=== PATIENT | male | born 1955 | race Caucasian/White ===

== ENCOUNTER 2018-11-12 18:16 | Emergency (ER) | payer MEDICAID ==
--- NOTE | 2018-11-12 19:41 | EDPHY ---
H & P Time Seen by Provider: 11/12/18 19:28 HPI/ROS: Chief complaint. Left leg swelling HPI. 62-year-old male presents emergency department with left lower extremity swelling for 6 days. He has redness as well as itching. Denies trauma. No fever. No symptoms above the left knee. No chest pain or shortness of breath. He has had similar symptoms previously. ROS 10 systems were reviewed and negative with the exception of the elements mentioned in the history of present illness Past Medical/Surgical History: Asthma and umbilical hernia repair Social History: Single, nonsmoker, no alcohol Smoking Status: Never smoked Physical Exam: General Appearance: Alert well-developed male mild distress vital signs are stable. Afebrile Eyes: Pupils equal and round no pallor or injection. ENT, Mouth: Mucous membranes are moist. Respiratory: There are no retractions, lungs are clear to auscultation. Cardiovascular: Regular rate and rhythm. Gastrointestinal: Abdomen is soft and nontender, no masses, bowel sounds normal. Neurological: Awake and alert, sensory and motor exams grossly normal. Skin: Erythema to the left lower extremity. Musculoskeletal: Neck is supple nontender. Extremities swelling to the left lower extremity. No symptoms above the knee. Psychiatric: Patient is oriented X 3, there is no agitation. Constitutional: Initial Vital Signs Temperature (C) 36.6 C 11/12/18 18:20 Heart Rate 91 11/12/18 18:20 Respiratory Rate 16 11/12/18 18:20 Blood Pressure 146/89 H 11/12/18 18:20 O2 Sat (%) 96 11/12/18 18:20 O2 Delivery Mode Room Air Allergies/Adverse Reactions: No Known Allergies Allergy (Verified 11/22/16 19:33) Home Medications: Medication Instructions Recorded Advair 03/29/16 Albuterol Hfa Anes Only 11/22/16 Fluticasone Nasal [Flonase Nasal 2 sprays NASAL DAILY #1 mdi 11/22/16 [place] (RX)] Ofloxacin 0.3% [Ocuflox 0.3% (RX)] 2 drops EACHEYE Q1 #1 btl 11/22/16 Cephalexin [Keflex (*)] 500 mg PO TID #21 cap 11/12/18 Medical Decision Making - Diagnostics Imaging Results: Imaging Impressions Extremity Venous Study 11/12/18 19:42 Impression: 1. No deep vein thrombosis in the left lower extremity. 2. Calf cellulitis with a reactive groin node. Results discussed with Dr. Amando Coronel at 8:18 PM Ultrasound left lower extremity negative for DVT. Reviewed by me and discussed with Up and Procedures: IV normal saline. Vancomycin IV ED Course/Re-evaluation: Re-evaluation 8:30 p.m. Patient is stable. Patient and I discussed laboratory evaluation, imaging studies, treatment plan including criteria for return and importance of follow-up and further evaluation. He expresses understanding and agreement Differential Diagnosis: This appears to be leg cellulitis. I also considered DVT. There was no history of trauma - Data Points Laboratory Results: Laboratory Results 11/12/18 20:20 11/12/18 11/12/18 20:20 20:20 WBC 12.74 10^3/uL H 10^3/uL (3.80-9.50) RBC 4.94 10^6/uL 10^6/uL (4.40-6.38) Hgb 15.0 g/dL g/dL (13.7-17.5) Hct 45.5 % % (40.0-51.0) MCV 92.1 fL fL (81.5-99.8) MCH 30.4 pg pg (27.9-34.1) MCHC 33.0 g/dL g/dL (32.4-36.7) RDW 13.2 % % (11.5-15.2) Plt Count 303 10^3/uL 10^3/uL (150-400) MPV 8.9 fL fL (8.7-11.7) Neut % (Auto) Pending Lymph % (Auto) Pending [place] % (Auto) Pending Eos % (Auto) Pending Baso % (Auto) Pending Nucleat RBC Rel Count Pending Absolute Neuts (auto) Pending Absolute Lymphs (auto) Pending Absolute Monos (auto) Pending Absolute Eos (auto) Pending Absolute Basos (auto) Pending Absolute Nucleated RBC Pending Immature Gran % Pending Immature Gran # Pending Platelet Estimate Pending Sodium Pending Potassium Pending Chloride Pending Carbon Dioxide Pending Anion Gap Pending BUN Pending Creatinine Pending Estimated GFR Pending Glucose Pending Calcium Pending Medications Given: Vancomycin/Sodium Chloride (Vancomycin 1 Gm (Premix)) 250 mls @ 250 mls/hr IV EDNOW ONE PRN Reason: Protocol Stop: 11/12/18 20:47 Last Admin: 11/12/18 20:17 Dose: 250 mls Departure - Departure Disposition: Home, Routine, Self-Care Clinical Impression: Cellulitis Qualifiers: Site of cellulitis: extremity Site of cellulitis of extremity: lower extremity Laterality: left Qualified Code(s): L03.116 - Cellulitis of left lower limb Condition: Good Instructions: Cellulitis (ED) Additional Instructions: Keep leg elevated as much as possible. May use aloe or Benadryl cream to help with itching Begin cephalexin tomorrow to continue to treat infection. Return for worsening symptoms. Recheck by Dr. Espinoza or the ED in 1-2 days without fail. Referrals: Marbella Espinoza MD [Primary Care Provider] - 1-2 days without fail Prescriptions: Cephalexin [Keflex (*)] 500 mg PO TID #21 cap
[2018-11-12] MEDS ORDERED: VANCOMYCIN HCL/NORMAL SALINE 250 ML IV ONE (19:48)
[2018-11-12 20:34] LABS: PLATELET COUNT 303 10^3/uL (150-400)
[2018-11-12 21:42] VITALS: BP 150/81
== END 2018-11-12 21:42 | disposition home or self-care (01) ==
DX: L03.116 Cellulitis of left lower limb (principal)
CPT/HCPCS: 96365; J3370

== ENCOUNTER 2018-11-14 21:06 | Inpatient (IN) | payer MEDICAID ==
[2018-11-14 22:35] LABS: PLATELET COUNT 312 10^3/uL (150-400)
[2018-11-14] MEDS ORDERED: ONDANSETRON DISINTEGRATING 4 MG TAB PO PRN (22:52)
[2018-11-14] MEDS ORDERED: ONDANSETRON 4 MG/2 ML VIAL IVP PRN (22:52)
[2018-11-14] MEDS ORDERED: ceFAZolin 2 GM/DEXTROSE 100 ML IV ONE (22:57)
--- NOTE | 2018-11-14 23:34 | EDPHY ---
H & P Stated Complaint: L LEG CELLULITIS GETTING WORSE Time Seen by Provider: 11/14/18 21:33 HPI/ROS: Chief complaint: Worsening left leg infection History of present illness: This is a 63-year-old male who presents to the emergency department for evaluation of a left leg infection. Patient was seen here 2 days ago after he developed erythema, edema, pain in itching to his left lower leg. He had an ultrasound which was negative for DVT. He was diagnosed with cellulitis and started on Keflex. He is taking the antibiotic as prescribed. He states some areas of redness is improved, some as worsen. However he presents tonight because the swelling is extending from below the knee to above the knee. No fevers. No red streaking. No other associated signs or symptoms. Review of systems: A 10 point review of systems was obtained and other than described above was negative - Personal History Current Tetanus Diphtheria and Acellular Pertussis (TDAP): Yes Tetanus Vaccine Date: 2013 - Medical/Surgical History Hx Asthma: Yes Other PMH: Med hx-Asthma, HTN. Surg-Umbilical hernia - Social History Smoking Status: Never smoked - Physical Exam Exam: General Appearance: Alert, nontoxic. Eyes: Pupils equal and round no injection. Respiratory: Chest is non tender, lungs are clear to auscultation. Cardiac: regular rate and rhythm Gastrointestinal: Abdomen is soft and non tender, no masses, bowel sounds normal. Musculoskeletal: Neck is supple and non tender. Extremities have full range of motion and are non tender. Skin: Patient has extensive erythema and edema extending from the left foot up to the level of the distal thigh. There is warmth and tenderness. Constitutional: Initial Vital Signs Heart Rate 87 11/14/18 21:11 Respiratory Rate 16 11/14/18 21:11 Blood Pressure 159/91 H 11/14/18 21:11 O2 Sat (%) 96 11/14/18 21:11 O2 Delivery Mode Room Air Allergies/Adverse Reactions: No Known Allergies Allergy (Verified 11/22/16 19:33) Home Medications: Medication Instructions Recorded Cephalexin [Keflex (*)] 500 mg PO TID #21 cap 11/12/18 Albuterol [Proventil Inhaler HFA 1 - 2 puffs IH Q4H PRN 11/14/18 (*)] Cetirizine [ZyrTEC 10 mg (*)] 5 mg PO DAILY@07 11/14/18 Fluticasone/Salmeter 250/50Mcg 1 puffs IH DAILY 11/14/18 [Advair 250/50 (*)] amLODIPine BESYLATE [Norvasc 2.5 2.5 mg PO DAILY PRN 11/14/18 mg (*)] Medical Decision Making ED Course/Re-evaluation: Patient is discussed with my secondary supervising physician Dr. Amber Krishnamurthy. Patient presents for a worsening left leg infection. He is nontoxic. Vital signs are stable. It does appear he is failing outpatient oral antibiotic therapy. I will therefore admit him for further evaluation and care. I have consulted with Dr. Dustin Vick. He requests blood cultures and patient be started on Ancef. Plan has been discussed with the patient who voiced understanding and agreement with it. Differential Diagnosis: Included but not limited to her simple is cellulitis, lymphangitis, abscess formation, osteomyelitis, doubtful necrotizing fasciitis - Data Points Laboratory Results: Laboratory Results 11/14/18 22:23 11/14/18 22:23 11/14/18 11/14/18 22:23 22:23 WBC 13.67 10^3/uL H 10^3/uL (3.80-9.50) RBC 4.92 10^6/uL 10^6/uL (4.40-6.38) Hgb 14.7 g/dL g/dL (13.7-17.5) Hct 43.6 % % (40.0-51.0) MCV 88.6 fL fL (81.5-99.8) MCH 29.9 pg pg (27.9-34.1) MCHC 33.7 g/dL g/dL (32.4-36.7) RDW 13.4 % % (11.5-15.2) Plt Count 312 10^3/uL 10^3/uL (150-400) MPV 8.7 fL fL (8.7-11.7) Neut % (Auto) Pending Lymph % (Auto) Pending [place] % (Auto) Pending Eos % (Auto) Pending Baso % (Auto) Pending Nucleat RBC Rel Count Pending Absolute Neuts (auto) Pending Absolute Lymphs (auto) Pending Absolute Monos (auto) Pending Absolute Eos (auto) Pending Absolute Basos (auto) Pending Absolute Nucleated RBC Pending Immature Gran % Pending Immature Gran # Pending Platelet Estimate Pending Sodium 134 mEq/L L mEq/L (135-145) Potassium 4.1 mEq/L mEq/L (3.5-5.2) Chloride 106 mEq/L mEq/L (97-110) Carbon Dioxide 22 mEq/l mEq/l (22-31) Anion Gap 6 mEq/L mEq/L (6-14) BUN 21 mg/dL mg/dL (7-23) Creatinine 1.0 mg/dL mg/dL (0.7-1.3) Estimated GFR > 60 Glucose 90 mg/dL mg/dL (70-100) Calcium 8.8 mg/dL mg/dL (8.5-10.4) Departure - Departure Disposition: [facility] In[facility] Acute Clinical Impression: Cellulitis Qualifiers: Site of cellulitis: extremity Site of cellulitis of extremity: lower extremity Laterality: left Qualified Code(s): L03.116 - Cellulitis of left lower limb Condition: Good
--- NOTE | 2018-11-15 00:43 | PDGENHP ---
History and Physical - Chief Complaint Cellulitis - History of Present Illness 63 yo M w/ hx of asthma presents with LLE cellulitis. The patient reports he developed swelling in that leg about 1 week ago. This was followed by intense itching. He scratched his leg pretty vigorously and then developed warmth and redness. He was seen in the ED 2 days ago, diagnosed with cellulitis, and prescribed Keflex. An US ruled out DVT at that time. Today he noted worsening of the swelling and redness so he came back in to the ED. Laboratory work-up demonstrates a mild leukocytosis but he is otherwise not displaying sepsis physiology. He is being admitted for IV antibiotics. Case discussed with ED CARL Manriquez; records reviewed and summarized above. History Information - Allergies/Home Medication List Allergies/Adverse Reactions: No Known Allergies Allergy (Verified 11/22/16 19:33) Home Medications: Albuterol [Proventil Inhaler HFA (*)] 1 - 2 puffs IH Q4H PRN 11/14/18 [Last Taken Unknown] Cetirizine [ZyrTEC 10 mg (*)] 5 mg PO DAILY@07 11/14/18 [Last Taken 11/14/18] Fluticasone/Salmeter 250/50Mcg [Advair 250/50 (*)] 1 puffs IH DAILY 11/14/18 [ Last Taken 11/14/18] amLODIPine BESYLATE [Norvasc 2.5 mg (*)] 2.5 mg PO DAILY PRN 11/14/18 [Last Taken 11/13/18] I have personally reviewed and updated: family history, medical history - Past Medical History asthma, hypertension - Surgical History Reports: hernia repair - Family History Additional family history: Various family members with substance abuse - Social History Smoking Status: Never smoked Review of Systems Review of Systems: ROS: 10pt was reviewed & negative except for what was stated in HPI & below Physical Exam Physical Exam: Temp Pulse Resp BP Pulse Ox 36.7 C 84 18 147/92 H 95 11/15/18 00:05 11/15/18 00:05 11/15/18 00:05 11/15/18 00:05 11/15/18 00:05 Constitutional: no apparent distress, not in pain Eyes: PERRL, EOMI Ears, Nose, Mouth, Throat: moist mucous membranes, no oral mucosal ulcers Cardiovascular: regular rate and rhythym, no murmur, rub, or gallop Respiratory: no respiratory distress, clear to auscultation Gastrointestinal: normoactive bowel sounds, soft, non-tender abdomen Skin: warm, other (Erythema, swelling LLE/ Mild patch of erythema RLE as well) Musculoskeletal: full muscle strength, no muscle tenderness Neurologic: AAOx3, CN II-XII Intact Psychiatric: interacting appropriately, not anxious Lab Data & Imaging Review 11/14/18 22:23 11/14/18 22:23 WBC 13.67 10^3/uL (3.80-9.50) H 11/14/18 22:23 RBC 4.92 10^6/uL (4.40-6.38) 11/14/18 22:23 Hgb 14.7 g/dL (13.7-17.5) 11/14/18 22:23 Hct 43.6 % (40.0-51.0) 11/14/18 22:23 MCV 88.6 fL (81.5-99.8) 11/14/18 22:23 MCH 29.9 pg (27.9-34.1) 11/14/18 22:23 MCHC 33.7 g/dL (32.4-36.7) 11/14/18 22:23 RDW 13.4 % (11.5-15.2) 11/14/18 22:23 Plt Count 312 10^3/uL (150-400) 11/14/18 22:23 MPV 8.7 fL (8.7-11.7) 11/14/18 22:23 Neut % (Auto) Not Reported 11/14/18 22:23 Lymph % (Auto) Not Reported 11/14/18 22:23 [place] % (Auto) Not Reported 11/14/18 22:23 Eos % (Auto) Not Reported 11/14/18 22:23 Baso % (Auto) Not Reported 11/14/18 22:23 Nucleat RBC Rel Count Not Reported 11/14/18 22:23 Absolute Neuts (auto) Not Reported 11/14/18 22:23 Absolute Lymphs (auto) Not Reported 11/14/18 22:23 Absolute Monos (auto) Not Reported 11/14/18 22:23 Absolute Eos (auto) Not Reported 11/14/18 22:23 Absolute Basos (auto) Not Reported 11/14/18 22:23 Absolute Nucleated RBC Not Reported 11/14/18 22:23 Immature Gran % Not Reported 11/14/18 22:23 Seg Neutrophils % 22.0 % 11/14/18 22:23 Band Neutrophils % 2.0 % 11/14/18 22:23 Lymphocytes % 68.0 % 11/14/18 22:23 Monocytes % 3.0 % 11/14/18 22:23 Eosinophils % 5.0 % 11/14/18 22:23 Basophils % 0.0 % 11/14/18 22:23 Metamyelocytes % 0.0 % 11/14/18 22:23 Myelocytes % 0.0 % 11/14/18 22:23 Promyelocytes % 0.0 % 11/14/18 22:23 Blast Cells % 0.0 % 11/14/18 22:23 Immature Gran # Not Reported 11/14/18 22:23 Absolute Seg Neuts 3.01 10^3/uL (1.70-6.50) 11/14/18 22:23 Absolute Band Neuts 0.27 10^3/uL (0.00-0.70) 11/14/18 22:23 Absolute Lymphocytes 9.30 10^3/uL (1.00-3.00) H 11/14/18 22:23 Absolute Monocytes 0.41 10^3/uL (0.30-0.80) 11/14/18 22:23 Absolute Eosinophils 0.68 10^3/uL (0.03-0.40) H 11/14/18 22:23 Absolute Basophils 0.00 10^3/uL (0.02-0.10) L 11/14/18 22:23 Absolute Metamyelocyte 0.00 10^3/mL (0.00-0.00) 11/14/18 22:23 Absolute Myelocytes 0.00 10^3/mL (0.00-0.00) 11/14/18 22:23 Absolute Promyelocytes 0.00 10^3/uL (0.00-0.00) 11/14/18 22:23 Absolute Plasma Cells 0.00 10^3/uL (0.00-0.00) 11/14/18 22:23 RBC/WBC/PLT Morphology NORMAL (NORMAL) 11/14/18 22:23 Atypical Lymphocytes 3+ H 11/14/18 22:23 Absolute Blast Cells 0.00 10^3/uL (0.00-0.00) 11/14/18 22:23 Plasma Cells % 0.0 % 11/14/18 22:23 Platelet Estimate ADEQUATE (ADEQ) 11/14/18 22:23 Sodium 134 mEq/L (135-145) L 11/14/18 22:23 Potassium 4.1 mEq/L (3.5-5.2) 11/14/18 22:23 Chloride 106 mEq/L (97-110) 11/14/18 22:23 Carbon Dioxide 22 mEq/l (22-31) 11/14/18 22:23 Anion Gap 6 mEq/L (6-14) 11/14/18 22:23 BUN 21 mg/dL (7-23) 11/14/18 22:23 Creatinine 1.0 mg/dL (0.7-1.3) 11/14/18 22:23 Estimated GFR > 60 11/14/18 22:23 Glucose 90 mg/dL (70-100) 11/14/18 22:23 Calcium 8.8 mg/dL (8.5-10.4) 11/14/18 22:23 Assessment & Plan Assessment: 63 yo M w/ asthma and HTN presents with LLE cellulitis. Plan: 1. LLE cellulitis - With mild leukocytosis but no evidence of sepsis physiology at this time. His symptoms progressed despite outpatient Keflex therapy. I suspect he may have initially had an allergic reaction leading to pruritus and excoriations, which was the eventual entry point of infection. - Cefazolin 2g IV q8h - Blood cultures ordered 2. Asthma - No evidence of acute exacerbation. - Continue home medications 3. HTN - Continue home medications Diet - Regular Code - Full Ppx - LMWH Dispo - Admit under observation status
[2018-11-15] MEDS ORDERED: ALBUTEROL 60 PUFFS/8 GM MDI IH PRN (00:48)
[2018-11-15 04:37] LABS: PLATELET COUNT 302 10^3/uL (150-400)
[2018-11-15] MEDS: CETIRIZINE 10 MG TAB PO SCH (07:30)
[2018-11-15] MEDS: ceFAZolin 2 GM/DEXTROSE 100 ML IV SCH ×3 (08:44→23:45)
[2018-11-15] MEDS: ENOXAPARIN 40 MG/0.4 ML SYR SC SCH (08:46)
[2018-11-15] MEDS: FLUTICASONE/SALMETER 250/50MCG DISKUS IH SCH (08:54)
--- NOTE | 2018-11-15 13:45 | HOSPPROG ---
Hospitalist Progress Note Assessment/Plan: 63 yo M w/ asthma and HTN presents with LLE cellulitis. Plan: 1. LLE cellulitis - With mild leukocytosis but no evidence of sepsis physiology on admission. His symptoms progressed despite outpatient Keflex therapy. I suspect he may have initially had an allergic reaction leading to pruritus and excoriations, which was the eventual entry point of infection. - Cefazolin 2g IV q8h - Blood cultures ordered - Will repeat LLE U/S to ensure no DVT 2. Asthma - No evidence of acute exacerbation. - Continue home medications 3. HTN - Continue home medications Diet - Regular Code - Full Ppx - LMWH Dispo - Pending clinical course, improvement in appearance of LLE cellulitis Subjective: Patient reports improvement in ROM of LLE due to improved swelling Objective: Vital Signs Temp Pulse Resp BP Pulse Ox 36.6 C 101 H 16 152/85 H 92 11/15/18 08:14 11/15/18 08:14 11/15/18 08:14 11/15/18 08:14 11/15/18 08:14 Laboratory Results 11/15/18 03:30 11/15/18 03:30 11/14/18 11/15/18 11/16/18 05:59 05:59 05:59 Intake Total 100 Balance 100 - Physical Exam Constitutional: no apparent distress Eyes: PERRL Ears, Nose, Mouth, Throat: moist mucous membranes Cardiovascular: regular rate and rhythym Respiratory: no respiratory distress Gastrointestinal: soft, non-tender abdomen Skin: warm, no fluctuance, erythema, rash Neurologic: AAOx3 Psychiatric: interacting appropriately ICD10 Worksheet Patient Problems: Problems Problem Status Onset Cellulitis Acute
--- NOTE | 2018-11-15 14:37 | ASMTCMCOM ---
CM Note CM Note Notes: 11/15/2018 Case Mangaement Note Discussed pt during rounds this morning. Pt admitted for cellulitis. There are no therapy evals ordered at this time. Met w/pt to discuss discharge needs. [place] by a friend. Pt unsure of address. Pt is currently unemployed. Pt is not in touch with family at this time. Pt shared that ex girlfriend Noemi Salazar [phone] would be emergency contact if pt unable to speak for himself. [facility]. PCP is Dr. Marbella Espinoza Case Management d/c poc: Independent with follow up as directed. Case Management available if needs change. Date Signed: 11/15/2018 02:37 PM Electronically Signed By:Pauly Hussein RN
[2018-11-15] MEDS: ACETAMINOPHEN 325 MG TAB PO PRN ×2 (14:38→18:30)
--- NOTE | 2018-11-15 16:31 | PDMN ---
Medical Necessity Medical necessity: [facility] M70 Cellulitis, A-2 days: 63 yo w/ LLE cellulitis worsening despite OP tx w/ Keflex. IV antibx started, BC pending. Requiring additional MN for ongoing IV antibx, lab monitoring as pt still w/ leukocytosis , and repeat U/S. Change to IP status 11/15/18@1335 per MD order.
[2018-11-16 04:59] LABS: PLATELET COUNT 299 10^3/uL (150-400)
[2018-11-16] MEDS: ENOXAPARIN 40 MG/0.4 ML SYR SC SCH (08:21)
[2018-11-16] MEDS: ceFAZolin 2 GM/DEXTROSE 100 ML IV SCH ×2 (08:21→15:41)
[2018-11-16] MEDS: CETIRIZINE 10 MG TAB PO SCH (08:21)
[2018-11-16] MEDS: FLUTICASONE/SALMETER 250/50MCG DISKUS IH SCH (09:18)
--- NOTE | 2018-11-16 11:55 | HOSPPROG ---
Hospitalist Progress Note Assessment/Plan: 63 yo M w/ asthma and HTN presents with LLE cellulitis. Plan: 1. LLE cellulitis - With mild leukocytosis but no evidence of sepsis physiology on admission. His symptoms progressed despite outpatient Keflex therapy. I suspect he may have initially had an allergic reaction leading to pruritus and excoriations, which was the eventual entry point of infection. - Cefazolin 2g IV q8h - Repeat LLE U/S done on 11/15 which was negative for DVT - Will consult ID this afternoon for further evaluation and treatment 2. Asthma - No evidence of acute exacerbation. - Continue home medications 3. HTN - Continue home medications Diet - Regular Code - Full Ppx - LMWH Dispo - Pending clinical course, improvement in appearance of LLE cellulitis Subjective: Patient reports continuing improvement in swelling in LLE Objective: Vital Signs Temp Pulse Resp BP Pulse Ox 36.9 C 94 16 154/80 H 93 11/16/18 08:00 11/16/18 08:00 11/16/18 08:00 11/16/18 08:21 11/16/18 08:00 Laboratory Results 11/16/18 03:40 11/15/18 11/16/18 11/17/18 05:59 05:59 05:59 Intake Total 1000 Balance 1000 - Physical Exam Constitutional: no apparent distress Eyes: PERRL Ears, Nose, Mouth, Throat: moist mucous membranes Cardiovascular: regular rate and rhythym, edema Respiratory: no respiratory distress Gastrointestinal: normoactive bowel sounds Skin: warm, erythema Musculoskeletal: full muscle strength Neurologic: AAOx3 Psychiatric: interacting appropriately ICD10 Worksheet Patient Problems: Problems Problem Status Onset Cellulitis Acute
--- NOTE | 2018-11-16 16:09 | GCON ---
[f rep st] CONSULTATION INFECTIOUS DISEASE CONSULTATION DATE OF CONSULTATION: 11/16/2018 REQUESTING PHYSICIAN: Naga Alonzo DO REASON FOR CONSULT: To assist in management of this 63-year-old male with left lower extremity cellulitis. There is a concern that it is not resolving. HISTORY OF PRESENT ILLNESS: Mr. Irizarry is a very pleasant 63-year-old male whose previous medical history is notable for the followin. Asthma, well controlled with ProAir that he uses p.r.n. 2. Hypertension. MEDICAL PROVIDER: Dr. Marbella Espinoza in [facility]. Regarding his present issues, the patient tells me that approximately 2 weeks ago he developed extreme pruritis in his left lower extremity by the foot and ankle area. He states there were no overlying skin changes. He states that he scratched it intensely (he admits to heavily scratching the area). He states that he put a topical antibiotic on the area, and the pruritus improved. Shortly thereafter, he states that he noticed some leg swelling and overlying erythema that was pinkish in color. Because of that, he went to his primary care doctor on November 12, who immediately referred him to the emergency department. In the emergency department, an ultrasound was negative for DVT. Patient states he was given a dose of IV antibiotics, which was a gram of vancomycin, and discharged with a prescription for Keflex for 7 days. He was afebrile at the time. After he went home, he told me that his leg definitely looked better with decreased swelling and erythema. He took 5 doses of Keflex and went back to his primary care doctor, as was outlined by Dr. Coronel in the emergency room. Unfortunately, because of the recurrence of erythema and swelling, she referred him right back to our emergency room on the , and the patient was readmitted. He was started empirically on cefazolin given no risk factors for MRSA. Patient has had approximately 5 doses of cefazolin, and because of slow resolution, I am now asked to assist in his management. On speaking with the patient today, he tells me his leg is starting to feel much better. He believes that the erythema is less beet red and he is starting to notice the decreased swelling. He has not been keeping his leg elevated. The patient states that he has been unemployed for the past 2 years and recently had to sell his home in [place] to make ends meet. He has been living at a friend's house, on the couch. He denies any insect bites, but does state that he has been using different soaps that he is normally not used to. He denies any history of an allergic propensity to soaps, or dermatitis or other allergic propensities. REVIEW OF SYSTEMS: Notable for some swelling in the leg, but otherwise he has felt prior to this all happening he was completely well. The patient tells me, "I've never spent a day in the hospital in my life." Otherwise 10 systems were reviewed and all were negative. PREVIOUS MEDICAL HISTORY: As outlined above. MEDICATIONS: Presently include: Cefazolin 2 g IV q.8 hours. He has received 5 doses of Zyrtec 5 mg daily, Lovenox, Zofran and Advair. ALLERGIES: No known drug allergies. SOCIAL HISTORY: The patient is living at a friend's house presently in [facility], but previously lived in [place]. No recent travel within or outside the [place]. No water exposure other than his shower. No insect bites that he is aware of or other unusual exposures. HIV negative in 2000. He states he is heterosexual and his last sexual activity was in June with a friend. He denies any illicit drug use, tobacco or alcohol. He does not have any pets. 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 FAMILY HISTORY: Noncontributory. PHYSICAL EXAMINATION: VITAL SIGNS: T current 36.9, T-max 37.1, heart rate 94, blood pressure 154/80. 94% on room air. GENERAL: Well-nourished, well- developed, middle-aged man, lying in bed, nontoxic, no apparent distress. HEENT : Atraumatic, normocephalic. Pupils equal, round, reactive to light. Extraocular movements are intact. No conjunctival injection. Negative petechiae. Mucous membranes moist. No oral lesions noted. Dentition in very poor repair with multiple fractured and carious teeth. No evidence of apical or periapical abscess or active odontogenic infection. No overlying sinus process tenderness. No cervical or supraclavicular lymphadenopathy. No inguinal adenopathy. CARDIOVASCULAR: S1, S2. No rubs, gallops, or murmurs. LUNGS: Clear to auscultation bilaterally. No rales, rhonchi, or wheeze. ABDOMEN: Soft, no organomegaly or tenderness to palpation. EXTREMITIES: The right lower extremity is not swollen, but is notable for some onychomycosis. He does have a subungual hematoma on the 3rd toe. He has a fairly large erythematous patch on the inner aspect of his right lower extremity that is blanching, and he says coincides with the cellulitis on his left lower extremity. His left lower extremity is edematous compared to the right and is with beet red erythema on his lower extremity extending into the foot dorsum and slightly past the knee. It is circumferential, it is blanching. There are some excoriations on his pretibial area with yellowish crust that is dried. No vesicles or bullae. Sensation is intact throughout with no hypesthesia. No evidence of onychomycosis. No tenderness out of proportion to exam findings. No squeeze tenderness of the gastrocnemius muscle. NEUROLOGIC: He is alert and oriented x3. LABORATORY DATA: No microbiologic data. A white blood cell count 11.3, slightly down from 13.6 on admission. Hematocrit 42, platelet count of 299, 35 % neutrophils, 51% lymphocytes. Mild absolute eosinophilia previously noted of 570. Radiographic data as per the HPI. IMPRESSION: 63-year-old male with left lower extremity cellulitis, as well as a small cellulitic patch on the right. Exam findings are not concerning for a necrotizing fasciitis or myositis. Suspect streptococcal or staphylococcal etiology. The patient does not have risk factors for methicillin-resistant Staphylococcus aureus, and feels that his lower extremity is less erythematous and edematous today. Notably, he has not been keeping his leg elevated. Plan: 1. Given that he has only had a day and a half of cefazolin, would continue this antibiotic as is with concomitant leg elevation. He does feel that he is improving, albeit slowly. 2. Check HIV antibody test for completeness. 3. The patient has a mild absolute eosinophilia, which we will repeat tomorrow. This was not noted previously in laboratories from November 12. 4. The patient is concerned that he has a job interview on Saturday afternoon. He will call his potential employer tomorrow and try and postpone that. He understands that he will be in the hospital at least another couple of days. Thank you very much for consulting Infectious Disease. We will continue to follow this patient with you. /[id number]/MODL MTDD
[2018-11-16] MEDS: hydrOXYzine HCL 25 MG TAB PO PRN (22:54)
[2018-11-17] MEDS: ceFAZolin 2 GM/DEXTROSE 100 ML IV SCH ×4 (00:11→23:49)
[2018-11-17 04:23] LABS: PLATELET COUNT 315 10^3/uL (150-400)
[2018-11-17 06:53] LABS: HIV TYPE 1 AND 2 NEGATIVE (NEGATIVE)
[2018-11-17] MEDS: CETIRIZINE 10 MG TAB PO SCH (07:10)
[2018-11-17] MEDS: ENOXAPARIN 40 MG/0.4 ML SYR SC SCH (08:45)
[2018-11-17] MEDS: FLUTICASONE/SALMETER 250/50MCG DISKUS IH SCH (09:21)
--- NOTE | 2018-11-17 12:04 | HOSPPROG ---
Hospitalist Progress Note Assessment/Plan: 63 yo M w/ asthma and HTN presents with LLE cellulitis. Plan: 1. LLE cellulitis - With leukocytosis but no evidence of sepsis physiology on admission. His symptoms progressed despite outpatient Keflex therapy. I suspect he may have initially had an allergic reaction leading to pruritus and excoriations, which was the eventual entry point of infection. - Cefazolin 2g IV q8h, Day 3 - Repeat LLE U/S done on 11/15 which was negative for DVT - Consulted ID on 11/16 who recommended continuing Ancef 2. Asthma - No evidence of acute exacerbation. - Continue home medications 3. HTN - Continue home medications Diet - Regular Code - Full Ppx - LMWH Dispo - Pending clinical course, patient has interview tomorrow afternoon, d/c tomorrow on PO abx per ID Subjective: Patient reports improved swelling and mobility of LLE Objective: Vital Signs Temp Pulse Resp BP Pulse Ox 37.1 C 80 18 144/85 H 91 L 11/17/18 08:00 11/17/18 08:00 11/17/18 08:00 11/17/18 08:56 11/17/18 08:00 Laboratory Results 11/17/18 03:40 11/17/18 03:40 11/16/18 11/17/18 11/18/18 05:59 05:59 05:59 Intake Total 1000 390 Balance 1000 390 - Physical Exam Constitutional: no apparent distress Eyes: PERRL Ears, Nose, Mouth, Throat: moist mucous membranes Cardiovascular: regular rate and rhythym Respiratory: no respiratory distress Gastrointestinal: soft, non-tender abdomen Skin: warm, erythema, rash Musculoskeletal: full muscle strength Neurologic: AAOx3 Psychiatric: interacting appropriately ICD10 Worksheet Patient Problems: Problems Problem Status Onset Cellulitis Acute
--- NOTE | 2018-11-17 12:49 | PCMIDPN ---
Assessment/Plan: Assessment: 63-year-old man with the 1st episode of lower extremity cellulitis with extensive disease suggestive of streptococcal cellulitis with toxin production causing an extensive immunologic reaction and erysipelas. He notes no clear break in the skin the precipitated this infection. With his clinical improvement and no limitations oral medication use change to oral therapy tomorrow prior to discharge with ID follow-up prior to finishing antibiotics. 1. Extensive left lower extremity cellulitis; erysipelas 2. Right lower extremity cellulitis, small patch 3. Lymphocytosis 4. Eosinophilia resolved 5. History of asthma with no systemic steroids Plan: 1. Continue cefazolin 2 g q.8 while inpatient 2. Can discharge tomorrow on amoxicillin 500 mg p.o. 3 times daily; stop date 3. Discussed in detail potential side effects of antibiotics including antibiotic associated diarrhea, rash, C diff colitis 4. Follow up with ID provider being arranged Mychal De La Cruz MD Infectious Diseases 11/17/18 12:51 Subjective: No fever or chills. Denies diarrhea, nausea, new rash. Appetite normal. Ambulating without difficulty. No new concerns today. Objective: Vital Signs Temp Pulse Resp BP Pulse Ox 37.1 C 80 18 144/85 H 91 L 11/17/18 08:00 11/17/18 08:00 11/17/18 08:00 11/17/18 08:56 11/17/18 08:00 Laboratory Results 11/17/18 03:40 11/17/18 03:40 11/16/18 11/17/18 11/18/18 05:59 05:59 05:59 Intake Total 1000 390 Balance 1000 390 Medications Generic Name Dose Route Start Last Admin Trade Name Freq PRN Reason Stop Dose Admin Cefazolin Sodium/Dextrose 100 mls @ 200 mls/hr 11/15/18 08:00 11/17/18 08:45 Ancef IV 12/15/18 07:59 100 mls Q8H SABINO Protocol Discontinued Medications Generic Name Dose Route Start Last Admin Trade Name Freq PRN Reason Stop Dose Admin Cefazolin Sodium/Dextrose 100 mls @ 200 mls/hr 11/14/18 22:57 11/15/18 00:05 Ancef IV 11/14/18 23:26 100 mls EDNOW ONE Protocol Laboratory Tests 02/05/2511/15/18 11/15/18 22:23 03:30 03:30 WBC Hgb Plt Count Absolute Seg Neuts 4.09 Absolute Lymphocytes 6.13 H Absolute Eosinophils 0.68 H 0.57 H Creatinine 1.0 AST ALT HIV 1&2 Antibody 11/16/18 11/16/18 11/17/18 03:40 03:40 03:40 WBC 11.35 H 11.32 H Hgb 14.1 14.5 Plt Count 299 315 Absolute Seg Neuts 4.64 Absolute Lymphocytes 5.55 H Absolute Eosinophils 0.23 Creatinine AST ALT HIV 1&2 Antibody NEGATIVE 11/17/18 03:40 WBC Hgb Plt Count Absolute Seg Neuts Absolute Lymphocytes Absolute Eosinophils Creatinine 1.1 AST 34 ALT 54 HIV 1&2 Antibody - Physical Exam General Appearance: alert, no apparent distress, non-toxic EENT: No scleral icterus Neck: full range of motion, supple Extremities: other (Left lower extremity with dense erythema extending proximally from the dorsum of the foot near circumferentially to just distal to the knee, receding from the drawn line on his leg from yesterday; right lower extremity with approximately 3 cm diameter patch of erythema at; no areas of fluctuance or induration throughout any of the erythematous areas of his lower extremities; no cracking of the feet including no cracking between the toes) Neuro/Psych: alert, normal mood/affect, oriented x 3, No confused - Time Spent With Patient Time Spent with Patient: greater than 25 minutes Time Spent with Patient: Greater than 25 minutes spent on this patients care, greater than 50% of time spent counseling, educating, and coordinating care regarding the above mentioned plan. ICD10 Worksheet Patient Problems: Problems Problem Status Onset Cellulitis Acute
[2018-11-17] MEDS: hydrOXYzine HCL 25 MG TAB PO PRN (22:10)
[2018-11-18 05:19] LABS: PLATELET COUNT 286 10^3/uL (150-400)
[2018-11-18] MEDS: FLUTICASONE/SALMETER 250/50MCG DISKUS IH SCH (08:35)
--- NOTE | 2018-11-18 08:42 | PDDCSUM ---
Discharge Summary Discharge Summary: Date of Admission: 11/15/2018 Date of Discharge: 11/18/2018 Studies: 1. Lower extremity doppler ultrasound Consultants: infectious disease Discharge Diagnoses: Brief Hospital Course: Medications: Please refer to EMR for complete list. Prescription was sent for amoxicillin 500mg TID #20 to his pharmacy. Follow Up Plan: 1. To be seen in infectious disease clinic by 11/24 Physical Exam: Vitals reviewed, afebrile. Alert and oriented
[2018-11-18 09:12] VITALS: BP 138/77
--- NOTE | 2018-11-18 09:34 | ASDISCHSUM ---
Discharge Information Plan Status:Home with No Needs Medically Cleared to Leave:11/17/2018 Discharge Date:11/17/2018 CM D/C Disposition:Home, Routine, Self-Care ADT D/C Disposition:Home, Routine, Self-Care Projected Discharge Date:11/17/2018 Transportation at D/C:Self Discharge Delay Reason: Follow-Up Date:11/17/2018 Discharge Slot: Final Diagnosis:Cellulitis Placement Information Patient Contact Information Contact Name:SHERLYN Relationship: Address: Home Phone: Work Phone: City: Alternate Phone: State/[place] Code: Email: Financial Information Financial Class:Medicaid Primary Plan Desc:[employer] [place] Primary Plan Number:[id number] Secondary Plan Desc: Secondary Plan Number: Assessment Information LACE LACE Length of stay for Answers: 3 days current admission Acuity / Level of Answers: Yes Care: Did the patient have an inpatient admission? Comorbidities - select Answers: Other Notes: asthma, HTN, cellulitis all that apply # of Emergency department Answers: 1-2 visits in the last 6 months Score: 8 Date Signed: 11/18/2018 09:34 AM Electronically Signed By:Griselda Berkowitz [facility] Progress Note CM Note CM Note Notes: 11/15/2018 Case Mangaement Note Discussed pt during rounds this morning. Pt admitted for cellulitis. There are no therapy evals ordered at this time. Met w/pt to discuss discharge needs. Pt [place] [facility] owned by a friend. Pt unsure of address. Pt is currently unemployed. Pt is not in touch with family at this time. Pt shared that ex girlfriend Noemi Elkins Marie [phone] would be emergency contact if pt unable to speak for himself. [facility] referral made. PCP is Dr. Marbella Espinoza Case Management d/c poc: Independent with follow up as directed. Case Management available if needs change. Date Signed: 11/15/2018 02:37 PM Electronically Signed By:Pauly Hussein RN Case Management Discharge Plan Note Case Management Discharge Discharge Order Complete? Answers: Yes Patient to Obtain Answers: Independently Medications Transportation Arranged Answers: Other Notes: self Transport will Pick (Date 11/18/2018 12:00 AM & Time) Family Notified Answers: No Notes: no family Discharge Comments Notes: Spoke with pt in the room. Pt lives in a friend's warehouse which has running water and heat. Pt has car here at hospital and plans to drive himself home. Pt states he is discharging to a safe situation and is able to care for self independently. No CM needs noted at this time. CM available should needs change. Date Signed: 11/18/2018 09:32 AM Electronically Signed By:Griselda Berkowitz Intervention Information
[2018-11-18] MEDS: CETIRIZINE 10 MG TAB PO SCH (09:59)
[2018-11-18] MEDS: ENOXAPARIN 40 MG/0.4 ML SYR SC SCH (09:59)
[2018-11-18] MEDS: ceFAZolin 2 GM/DEXTROSE 100 ML IV SCH (09:59)
== END 2018-11-18 11:33 | disposition home or self-care (01) | DRG 383 ==
LOC: F2W 11-15 00:13 → OBSVTOIN 11-15 13:35
PROVIDERS: ADMIT Student in an Organized Health Care Education/Training Program; ATTEND Internal Medicine
DX: L03.116 Cellulitis of left lower limb (principal); A46 Erysipelas; L03.115 Cellulitis of right lower limb; D72.829 Elevated white blood cell count, unspecified; J45.909 Unspecified asthma, uncomplicated; I10 Essential (primary) hypertension
CPT/HCPCS: 96374; G0378; J0690; J1650